=== PATIENT | male | born 1950 | race Caucasian/White ===

== ENCOUNTER → 2016-11-26 | Outpatient (CLI) | payer MEDICARE, BC ==
[~2016-11-26] MED LIST: INDERAL20 MG PO; KLONOPIN0.5 M3 PO; LIPITOR40 MG PO; LO-DOSE ASPIRIN81 M1 PO; MULTI VITAMIN1 EACH PO; NEXIUM PO; TAPAZOLE5 MG PO
[2016-11-26 15:55] LABS: CALCIUM SERUM 9.4 mg/dL (8.4-10.2); GLOM FILT RATE Estimated 77.5 mL/min (>60); POTASSIUM 4.1 mmol/L (3.5-5.1)
== END | disposition home or self-care (01) ==
LOC: CAMB 14:17
PROVIDERS: Surgery
DX: Z01.812 Encounter for preprocedural laboratory examination (principal)
CPT/HCPCS: 36415; 80048; 93005

== ENCOUNTER → 2016-11-28 | Day surgery (SDC) | payer MEDICARE, BC ==
--- NOTE | ~2016-11-28 | EKG ---
PATIENT: ELENA DUFFY UNIT #: [id number] Ventricular Rate: 68 BPM Atrial Rate: 68 BPM P-R Interval: 194 ms QRS Duration: 94 ms Q-T Interval: 414 ms QTC Calculation(Bezet): 440 ms P [place]: 68 degrees Calculated R [place]: 67 degrees Calculated T [place]: 86 degrees Diagnosis Line: Normal sinus rhythm Diagnosis Line: Septal infarct , age undetermined Diagnosis Line: Abnormal ECG Diagnosis Line: No previous ECGs available Diagnosis Line: Confirmed by ANNIKA BARRETT MD ([id number]) on 11/26/2016 Diagnosis Line: 10:30:26 PM INTERPRETING MD: NENA LAURENT
--- NOTE | ~2016-11-28 | OR ---
Unit #: [id number] #: [id number] Patient: ELENA DUFFY [id number] [facility]. [place], [place] [address] [id number] Oziel MR#: [id number] NAME: ELENA DUFFY. ROOM: Date of Procedure: 11/28/2016 Admission Date: 11/28/2016 Surgeon: Medardo Han III, M.D. : 1950 Attending Physician: Medardo Han III, M.D. Primary Care Physician: Elena Rodriguez M.D. OPERATIVE REPORT PREOPERATIVE DIAGNOSES Gastroesophageal reflux disease and hiatal hernia. POSTOPERATIVE DIAGNOSES Gastroesophageal reflux disease and hiatal hernia. PROCEDURE PERFORMED Laparoscopic Roger fundoplication. STORES ASSISTANT Dr. Adiel Bronson. SPECIMENS None. COMPLICATIONS None apparent. ESTIMATED BLOOD LOSS Minimal. 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 He has tried numerous fkgn-bpy-girhgpl and prescription, acid reducers without any significant results. He has undergone upper endoscopy, which did demonstrate a hiatal hernia. He is here today for lap Roger. DESCRIPTION OF PROCEDURE After consent was obtained, the patient was brought to the operating room and placed in the supine position. General anesthetic was administered. His abdomen was prepped and draped in standard surgical fashion. I made a 1 cm periumbilical incision and used a Visiport to enter into the peritoneal cavity without any difficulty. CO2 pneumoperitoneum was then established. Next, a 5 mm Biju liver retractor was placed in the subxiphoid region to provide exposure of the GE junction. A 10-mm port was placed in the left upper quadrant and a 5-mm port was placed in the right upper quadrant and the left lateral subcostal region. I began by opening up the clear space in the gastrohepatic ligament and took down the phrenoesophageal ligament. It should be noted that he had a moderate-sized hiatal hernia. I identified both the right and left crura and began circumferential dissection of the esophagus. There was adequate Unit #: [id number] #: [id number] Patient: ELENA DUFFY length of the esophagus to perform Roger fundoplication. Once I had this fully mobilized, it should be noted that there was some inflammation around this area consistent with reflux. I then turned my attention taking down the short gastric arteries along the upper third of the fundus. I used the Harmonic Scalpel to achieve this. Hemostasis was excellent. I then reapproximated the posterior crura with 2 interrupted 0 Ethibond kryhai-rv-dnunl sutures. I then performed a 360-degree loose floppy Roger wrap. This was done with 3 separate interrupted Ethibond sutures, where each bite was approximately 1 cm apart. The superior most stitch incorporated a bite of the anterior esophagus. Again, the wrap was loose and floppy under no tension. I had again good hemostasis and all needle, sponge, and instrument counts were correct x2. I removed all the trocars and released the pneumoperitoneum. I injected all the port sites with 0.25% plain Marcaine. I reapproximated the skin edges with interrupted 4-0 Vicryl subcuticular suture. Steri-Strips were then applied. The patient tolerated the procedure without any problems and returned to the recovery room in stable condition. Dictated by... Medardo Han III, M.D. VCL/susana TD: 11/28/2016 23:53 JOB #: [id number] Gurinder Shelton M.D. OPERATIVE REPORT Page 1 of 1 X Medardo Han III, MD PROCEDURE OPERATIVE NOTE
== END | disposition home or self-care (01) ==
LOC: CSUR 09:33
DX: K21.9 Gastro-esophageal reflux disease without esophagitis (principal); K44.9 Diaphragmatic hernia without obstruction or gangrene; Z87.891 Personal history of nicotine dependence; E05.00 Thyrotoxicosis with diffuse goiter without thyrotoxic crisis or storm; Z79.82 Long term (current) use of aspirin; Z79.899 Other long term (current) drug therapy; Z98.890 Other specified postprocedural states
CPT/HCPCS: 93005; J0330; J1100; J2250; J2405; J2710; J3010

== ENCOUNTER 2017-04-04 15:30 | Inpatient (IN) | payer MEDICARE, BC ==
[~2017-04-04] VITALS: Ht 185.4 cm; Wt 71.0 kg
--- NOTE | ~2017-04-04 | EKG ---
PATIENT: ELENA DUFFY UNIT #: [id number] Ventricular Rate: 76 BPM Atrial Rate: 76 BPM P-R Interval: 180 ms QRS Duration: 112 ms Q-T Interval: 430 ms QTC Calculation(Bezet): 483 ms P [place]: 49 degrees Calculated R [place]: 18 degrees Calculated T [place]: 115 degrees Diagnosis Line: Normal sinus rhythm Diagnosis Line: Possible Left atrial enlargement Diagnosis Line: Incomplete left bundle branch block Diagnosis Line: T wave abnormality, consider lateral ischemia Diagnosis Line: Prolonged QT Diagnosis Line: Abnormal ECG Diagnosis Line: When compared with ECG of 04-APR-2017 17:51, Diagnosis Line: (unconfirmed) Diagnosis Line: Premature ventricular complexes are no longer Diagnosis Line: Present Diagnosis Line: Diagnosis Line: Confirmed by MARY SANTO MD ([id number]) on Diagnosis Line: 04/05/2017 4:47:29 PM INTERPRETING MD: VINNY
--- NOTE | ~2017-04-04 | HP ---
Unit #: [id number] #: [id number] Patient: ELENA DUFFY [id number] [facility]. [place], [place] [address] [id number] I MR#: [id number] NAME: ELENA DUFFY ROOM: CIC3 Age: 67 Sex: M Admission Date: 04/04/2017 : 1950 Attending Physician: Chris Hewitt M.D. Primary Care Physician: Elena Rodriguez M.D. 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 Early this year, the patient had chest pain every day. It was not relieved after multiple PPIs as prescribed by (1) . He eventually had Roger fundoplication. The chest pain was resolved after surgery. Since, he has lost 15 pounds that he has not been able to regain. For the past seven days, he complained of weakness and had a dry, nonproductive cough. He has been gradually increasing his activity with walking. However, today he completed a one hour bike ride with his . When he came home, he felt palpitations. He took his pulse and noted what he felt was premature ventricular complexes or premature atrial complexes. Later in the afternoon, he developed a sudden onset of dyspnea. He went to [facility] where a chest x-ray revealed pulmonary edema. He was subsequently transferred to [facility]. He denies any symptoms of angina. He reports no pressure as if an "elephant was sitting on his chest." He had no diaphoresis, nausea, jaw pain or numbness in his hands. His electrocardiogram on presentation showed incomplete left bundle branch block with frequent premature atrial complexes that was not evident on previous electrocardiograms. His troponin initially negative. PAST MEDICAL HISTORY 1. Thyrotoxicosis. 2. GERD. 3. Former smoker. PAST SURGICAL HISTORY Roger fundoplication. 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 He is . He quit smoking four years ago. FAMILY HISTORY Father had bypass surgery at age 67. Mother had documented coronary artery disease in her 80s. He is the only child. ALLERGIES No known drug allergies. HOME MEDICATIONS Not currently reconciled the patient states he takes Tapazole and Inderal. REVIEW OF SYSTEMS Unit #: [id number] #: [id number] Patient: ELENA DUFFY CONSTITUTIONAL: Positive for weakness. Has no weight loss. Unable to gain 15 pounds weight loss from earlier this year. HEENT: Denies headache and dizziness. CARDIOVASCULAR: Has no symptoms of angina. Positive for palpitations. Denies paroxysmal nocturnal dyspnea or orthopnea. RESPIRATORY: Positive for dyspnea. Has a dry, nonproductive cough. GASTROINTESTINAL: Denies abdominal pain or nausea. EXTREMITIES: Negative for lower extremity edema. PHYSICAL EXAMINATION VITAL SIGNS: Blood pressure 117/84, heart rate 106, temperature 98.4, BMI 20. GENERAL: This is a 67-year-old, thin, pale, white male who is in mild respiratory distress. NEUROLOGICAL: He is awake, alert and oriented. There is no focal weaknesses noted. NECK: Trachea is midline. No thyromegaly. No jugular venous distention. Normal carotid upstrokes without bruit. CHEST: With expiratory crackles at both lung bases. No rhonchi or wheezes. HEART: S1, S2. No S3 or S4. No murmurs or rubs or clicks. Regular rate and rhythm with occasional ectopic beats. Noted for tachycardia. ABDOMEN: Soft, flat, nontender with bowel sounds are present. No organomegaly. No masses appreciated. EXTREMITIES: Without leg edema. Bilateral PT/DTs are palpable. SKIN: Pale and dry but no cyanosis. DIAGNOSTIC STUDIES LABORATORY STUDIES: Hemoglobin 14.7, hematocrit 44.3, platelet count 251, white count 10.7, sodium 132, potassium 3.9, BUN 12, creatinine 1.1 with troponin 0.02. DIAGNOSTIC IMAGING: Chest x-ray shows pulmonary edema. CARDIOVASCULAR STUDIES: Electrocardiogram - sinus tachycardia with a rate of 107 beats per minute. There is a new idioventricular conduction delay of left bundle branch block type. Premature atrial complex. IMPRESSION 1. New onset acute pulmonary edema. 2. IVCD, left bundle branch type. 3. COPD. 4. History of thyrotoxicosis. 5. (2) likely cause is ischemic heart disease, especially given new IVCD of left bundle branch block type on electrocardiogram. Troponin initially negative. Will continue to trend to rule out myocardial infarction. 6. Diurese with IV diuretics. BMP will be checked. 7. Start on beta luisito for control of arrhythmias and hydrate. 8. Afterload reduction will be given with nitrates, morphine and GOSIA inhibitor if blood pressure tolerates. 9. 2D echocardiogram will be done for left ventricular systolic function. 10. Lipid profile and TSH will be checked. 11. Anticoagulate with aspirin and Lovenox. 12. Recommend cardiac catheterization to define his coronary anatomy. This has been discussed with the patient and his and they are agreeable. Unit #: [id number] #: [id number] Patient: ELENA DUFFY Dictated by Jhonny Healy A.P.R.N. for Araceli Shook/bernice TD: 04/05/2017 05:53 JOB #: [id number] HISTORY AND PHYSICAL Page 1 of 1 X Jhonny Healy APRN X HISTORY AND PHYSICAL
--- NOTE | ~2017-04-04 | DS ---
Unit #: [id number] #: [id number] Patient: ELENA DUFFY [id number] [facility]. [place], [place] [address] [id number] I MR#: [id number] NAME: ELENA DUFFY. ROOM: [facility] Age: 67 Sex: M Admission Date: 04/04/2017 : 1950 Discharge Date: 04/06/2017 Attending Physician: Chris Hewitt M.D. Primary Care Physician: Elena Rodriguez M.D. DISCHARGE SUMMARY TRANSFER DIAGNOSES 1. New onset acute pulmonary edema. 2. Severe left ventricular systolic dysfunction with ejection fraction of 15 to 20% per two-dimensional echocardiogram. There is severe global hypokinesis of the left ventricle and severe hypokinesis of the septal wall. Right ventricular systolic pressure 61 millimeters of mercury, consistent with severe pulmonary hypertension. There is moderate mitral regurgitation and omvq-li-nuwcznyh tricuspid regurgitation. Mild pulmonic valve regurgitation. 3. Status post cardiac catheterization, 04/05/2017, per Dr. Hewitt at [facility] that reveals the following results: a. Left main with moderate calcification with 75% stenosis before the bifurcation of the left anterior descending and the circumflex artery. b. Left anterior descending artery with moderate calcification in the proximal left anterior descending. There is 100% occlusion at the ostium of the left anterior descending. Mid and distal left anterior descending fills by retrograde collaterals from the right coronary artery. The vessel is 2 millimeters in diameter and may be adequate target for bypass. Diagonal branch also small, fills with ipsilateral collaterals. c. Circumflex artery with 75 to 80% stenosis at the ostium. First marginal branch 90% stenosis at its origin. d. Right coronary artery 100% occluded after the origin of the acute right ventricular branch. The posterior descending artery fills by zqbm-ff-cciji collaterals. e. Left ventricular end diastolic pressure elevated at 47 millimeters of mercury. Left ventriculogram not done because of severe 3-vessel coronary artery disease and left main stenosis. Intraaortic balloon pump inserted. 4. Ischemic cardiomyopathy. 5. Severe pulmonary hypertension. 6. Nicotine abuse. 7. History of thyrotoxicosis. 8. Anxiety. TRANSFER MEDICATIONS 1. Atorvastatin 80 mg q.h.s. 2. Klonopin 1 mg q.h.s. 3. Xanax 0.25 mg t.i.d. p.r.n. anxiety. 4. Carvedilol 3.125 mg b.i.d. 5. Furosemide 20 mg IV b.i.d. 6. Lisinopril 2.5 mg q.h.s. Unit #: [id number] #: [id number] Patient: ELENA DUFFY 7. Aspirin 81 mg daily. 8. Nitroglycerin 0.4 mg sublingual q.5 minutes x3 p.r.n. chest pain. 9. Heparin drip per low-dose weight-base protocol with boluses. 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 He was found to be in acute pulmonary edema. He was diuresed with IV diuretics initially. He was ruled out for an acute myocardial infarction where his troponin peaked at 0.11. His electrocardiogram showed new incomplete left bundle branch block. His BNP was elevated at 752. Echocardiogram obtained, found the patient to have severe left ventricular systolic dysfunction where his ejection fraction was 15 to 20%. He had severe pulmonary hypertension with right ventricular systolic pressure of 61 mmHg. There was moderate mitral regurgitation. He was treated with nitrates, started on GOSIA inhibitor and beta-luisito with Metoprolol. He was advised to undergo cardiac catheterization to define his coronary anatomy, for which he agreed. He was observed in the intensive care unit. The following day the patient underwent cardiac catheterization where he was found to have left main stenosis of 75%. The origin of the LAD was 100% occluded. There was collateralization that filled from right to left. There was 90% occlusion to the circumflex first obtuse marginal branch and the circumflex itself of 75 to 80%. Right coronary artery was also occluded at 100% mid vessel. The PDA filled with rnbt-fk-ichmy collaterals. Because of his severe left ventricular systolic function and left main stenosis and severe mitral regurgitation, intraaortic balloon pump was inserted during the cardiac catheterization lab. He was started on a heparin drip and continued on IV diuretics. Metoprolol was changed to carvedilol 3.125 mg b.i.d. The patient was recovered in the intensive care unit. Because of severe 3-vessel coronary artery disease with left main stenosis, the patient was advised to undergo coronary artery bypass graft with mitral valve repair. His options were discussed - whether to transfer to [facility] or [facility], [place]. The patient was to decide. He had anxiety; therefore, was treated with Xanax and continued on his home dose of Klonopin. His blood pressure has been stable on intraaortic balloon pump where he required no vasoactive pressors. Lipid profile was obtained, which shows he had good control of his lipid levels. However, because of his severe 3-vessel coronary artery disease, he was placed on high-intensity statin with Lipitor. Once the patient makes decision of his choice of hospitalization, he will be transferred for bypass surgery. DIAGNOSTIC STUDIES LABORATORY STUDIES: Glucose 141, BUN 16, creatinine 1.1, sodium 137, potassium 3.6. Troponin 0.07 and 0.11. BNP 752. Cholesterol 123, triglycerides 52, LDL 57, HDL 56. White count 3.7, hemoglobin 12.9, hematocrit 37.6, platelet count 162. DIAGNOSTIC IMAGING: Chest x-ray shows a partial clearing of the lower lungs with qoip-vv-hebujvgb remaining interstitial infiltrates in the lower lungs bilaterally. No new infiltrates. DISPOSITION To [facility] versus [facility], [place]. Unit #: [id number] #: [id number] Patient: ELENA DUFFY PLAN 1. The films will be reviewed by cardiothoracic surgeon. 2. Intraaortic balloon pump will be removed in the a.m. if stable. 3. The patient will require coronary artery bypass surgery with mitral valve repair. Following surgery, the patient will be required AICD insertion if LV function does not improve despite revascularization. Dictated by... Jhonny Healy A.P.R.N. for Araceli Shook/sven TD: 04/08/2017 15:57 JOB #: [id number] DISCHARGE SUMMARY Page 1 of 1 X Jhonny Healy APRN DISCHARGE SUMMARY
--- NOTE | ~2017-04-04 | CR72 ---
[facility] A Service of [facility] & [facility] RADIOLOGY TEXT RESULTS PATIENT: ELENA DUFFY LOCATION: [address] [place] [id number] : [birth year] UNIT #: [id number] AGE: [address]: Chris Hewitt MD SEX: M ORDER DR: [id number] [facility] [address] [facility]. [place], [place] [address] [id number] I MR#: [id number] Acc #: [id number] NAME: ELENA DUFFY. : 1950 SEX: M STUDY DATE/TIME: 04/05/2017 5:39 UNIT: [facility] ROOM: [facility] STUDY DESCRIPTION: CR Chest Single View Portable Attending Physician: Chris Hewitt M.D. Ordering Physician: Chris Hewitt M.D. Primary Care Physician: Elena Rodriguez M.D. MEDICAL IMAGING REPORT This report is preliminary unless electronic signature is present EXAM Portable chest HISTORY Shortness of air and heart palpitations today. FINDINGS Compared to yesterday, there has been partial clearing of the lower lungs with irhg-az-obkprpcw remaining interstitial infiltrates in the lower lungs bilaterally. No new infiltrates. The cardiac and mediastinal contours are normal. Mild right thoracic curve. Dictated by... Moreno Yan M.D. THIS IS AN ELECTRONICALLY VERIFIED REPORT Moreno Yan M.D. at 04/05/2017 4:03 PM DFL/eliezer TD: 04/05/2017 08:13 JOB #: [id number] MEDICAL IMAGING REPORT Page 1 of 1 COPY
--- NOTE | ~2017-04-04 | CR72 ---
[facility] A Service of [facility] & [facility] RADIOLOGY TEXT RESULTS PATIENT: ELENA DUFFY LOCATION: [place] [id number] : [birth year] UNIT #: [id number] AGE: [address]: Chris Hewitt MD SEX: M ORDER DR: [id number] [facility] [address] [facility]. [place], [place] [address] [id number] I MR#: [id number] Acc #: [id number] NAME: ELENA DUFFY. : 1950 SEX: M STUDY DATE/TIME: 04/04/2017 17:42 UNIT: [facility] ROOM: [facility] STUDY DESCRIPTION: CR Chest Single View Portable Attending Physician: Chris Hewitt M.D. Ordering Physician: Physician Non-Staff Primary Care Physician: Elena Rodriguez M.D. MEDICAL IMAGING REPORT This report is preliminary unless electronic signature is present EXAM Portable chest. HISTORY Dyspnea, sudden onset palpitations today. COMPARISON 04/04/1978 at 1523 hours FINDINGS Portable view of the chest demonstrates no significant change in cardiopulmonary status. Continued diffuse lung disease with diffuse interstitial prominence as well as areas of airspace opacity in the mid and lower lung zones. Differential would include noncardiogenic pulmonary edema as well as diffuse infectious or inflammatory process. No effusions. Heart size within normal limits. Mediastinum unremarkable. No invasive tubes or lines. No pneumothorax. Dictated by... Arjun Carter M.D. THIS IS AN ELECTRONICALLY VERIFIED REPORT Arjun Carter M.D. at 04/05/2017 6:54 PM ABDOULAYE/raman TD: 04/05/2017 01:20 JOB #: [id number] MEDICAL IMAGING REPORT Page 1 of 1 COPY
--- NOTE | ~2017-04-04 | EKG ---
PATIENT: ELENA DUFFY UNIT #: [id number] Ventricular Rate: 107 BPM Atrial Rate: 107 BPM P-R Interval: 164 ms QRS Duration: 114 ms Q-T Interval: 370 ms QTC Calculation(Bezet): 493 ms P [place]: 40 degrees Calculated R [place]: 6 degrees Calculated T [place]: 87 degrees Diagnosis Line: Sinus tachycardia with frequent Premature Diagnosis Line: ventricular complexes Diagnosis Line: Possible Left atrial enlargement Diagnosis Line: Non-specific intra-ventricular conduction delay Diagnosis Line: Nonspecific ST and T wave abnormality Diagnosis Line: Abnormal ECG Diagnosis Line: When compared with ECG of 26-NOV-2016 14:37, Diagnosis Line: Premature ventricular complexes are now Present Diagnosis Line: Vent. rate has increased BY 39 BPM Diagnosis Line: QRS duration has increased Diagnosis Line: Nonspecific T wave abnormality now evident in Diagnosis Line: Lateral leads Diagnosis Line: QT has lengthened Diagnosis Line: Confirmed by MARY SANTO MD ([id number]) on Diagnosis Line: 04/05/2017 4:44:59 PM INTERPRETING MD: VINNY
[2017-04-04 20:12] LABS: %MB 2.2 % (0.0-4.0); MB 1.7 ng/ml
[2017-04-05 02:06] LABS: %MB 2.8 % (0.0-4.0); MB 1.9 ng/ml
[2017-04-05 05:21] LABS: HEMATOCRIT 37.6 % (38.0-50.0); HEMOGLOBIN 12.9 gm/dL (13.0-16.0); LYMPHOCYTE# 0.8 X10e3 (1.0-3.5); LYMPHOCYTE% 21.3 % (17.0-45.0); MEAN CELL VOLUME 85.9 FL (83-96); MEAN CORPUSCULAR HEMOGLOBIN 29.4 PG (28-34); MEAN CORPUSCULAR HGB CONC 34.2 g/dL (30-36); MEAN PLATELET VOLUME 8.3 FL (6.5-11.5); MONOCYTE# 0.2 X10e3 (0-1.0); MONOCYTE% 5.3 % (3.0-12.0); NEUTROPHIL# 2.7 X10e3 (1.5-7.1); NEUTROPHIL% 73.4 % (40-75); PLATELET COUNT 162 X10e3 (140-420); RED BLOOD COUNT 4.37 X10e (3.90-5.60); WHITE BLOOD COUNT 3.7 X10e3 (4.0-10.5)
[2017-04-05 05:29] LABS: PARTIAL THROMBOPLASTIN TIME 29.5 SECONDS (23.5-31.3)
[2017-04-05 05:38] LABS: DIFF IND NO
[2017-04-05 06:06] LABS: BUN/CREATININE RATIO 14.54; CALCIUM SERUM 8.3 mg/dL (8.4-10.2); CREATININE SERUM 1.1 mg/dL (0.6-1.4); GLOM FILT RATE Estimated 68.6 mL/min (>60); POTASSIUM 3.6 mmol/L (3.5-5.1)
[2017-04-06 05:24] LABS: BASOPHIL% 0.2 % (0-2.5); EOSINOPHIL# 0.1 X10e3 (0-0.7); EOSINOPHIL% 1.3 % (0.0-7.0); HEMATOCRIT 33.7 % (38.0-50.0); HEMOGLOBIN 11.4 gm/dL (13.0-16.0); LYMPHOCYTE# 1.5 X10e3 (1.0-3.5); LYMPHOCYTE% 26.5 % (17.0-45.0); MEAN CELL VOLUME 86.6 FL (83-96); MEAN CORPUSCULAR HEMOGLOBIN 29.2 PG (28-34); MEAN CORPUSCULAR HGB CONC 33.7 g/dL (30-36); MEAN PLATELET VOLUME 8.2 FL (6.5-11.5); MONOCYTE# 0.8 X10e3 (0-1.0); MONOCYTE% 13.7 % (3.0-12.0); NEUTROPHIL# 3.4 X10e3 (1.5-7.1); NEUTROPHIL% 58.3 % (40-75); PLATELET COUNT 140 X10e3 (140-420); RED BLOOD COUNT 3.89 X10e (3.90-5.60); RED CELL DISTRIBUTION WIDTH 13.9 % (11.0-15.5)
[2017-04-06 05:27] LABS: WHITE BLOOD COUNT 5.8 X10e3 (4.0-10.5)
[2017-04-06 05:28] LABS: DIFF IND NO
[2017-04-06 06:32] LABS: BUN/CREATININE RATIO 21.42; CREATININE SERUM 0.7 mg/dL (0.6-1.4); MAGNESIUM 2.1 mg/dL (1.6-3.0); POTASSIUM 3.5 mmol/L (3.5-5.1)
== END 2017-04-06 11:45 | DRG 983 ==
LOC: CICCU3 15:30 → UNDOADMIN 17:06 → CICCU3 04-06 11:45
PROVIDERS: Internal Medicine Cardiovascular Disease; Nurse Practitioner
PROC: 4A023N7 Measurement of Cardiac Sampling and Pressure, Left Heart, Percutaneous Approach (ICD-10-PCS; principal; 2017-04-05)
PROC: 5A02210 Assistance with Cardiac Output using Balloon Pump, Continuous (ICD-10-PCS; 2017-04-05)
PROC: B2111ZZ Fluoroscopy of Multiple Coronary Arteries using Low Osmolar Contrast (ICD-10-PCS; 2017-04-05)
PROC: B2151ZZ Fluoroscopy of Left Heart using Low Osmolar Contrast (ICD-10-PCS; 2017-04-05)
PROC: B24BZZ4 Ultrasonography of Heart with Aorta, Transesophageal (ICD-10-PCS; 2017-04-05)
DX: J81.0 Acute pulmonary edema (principal); I25.82 Chronic total occlusion of coronary artery; I27.2 Other secondary pulmonary hypertension; I25.5 Ischemic cardiomyopathy; I25.10 Atherosclerotic heart disease of native coronary artery without angina pectoris; I34.0 Nonrheumatic mitral (valve) insufficiency; I36.1 Nonrheumatic tricuspid (valve) insufficiency; Z87.891 Personal history of nicotine dependence; F41.9 Anxiety disorder, unspecified; I44.7 Left bundle-branch block, unspecified
CPT/HCPCS: 71010; 80048; 80061; 82550; 82553; 83735; 83880; 84439; 84484; 85025; 85610; 85730; 93005; 93306; 99152; 99153; C1769; C1887; C1894; J1644; J1650; J1940; J2250; J2270; J2370; J3010